=== PATIENT | male | born 1945 | race Two or more races ===

== ENCOUNTER 2016-12-05 18:12 | Inpatient (IN) | payer MEDICARE, MEDICAID ==
[~2016-12-05] VITALS: Ht 167.6 cm; Wt 99.8 kg
[2016-12-05 18:45] VITALS: BP 133/76
[2016-12-05] MEDS ORDERED: PredniSONE 20mg tab ORAL ONE (18:45)
[2016-12-05] MEDS ORDERED: Ipratropium 0.02% Inh Soln 2.5ml UD HHN ONE (18:45)
[2016-12-05 18:52] LABS: BASOPHILS % (AUTO) 1.7 % (0.0-2.0); EOSINOPHILS % (AUTO) 4.4 % (0.0-3.0); LYMPHOCYTES % (AUTO) 24.8 % (20.0-45.0); MEAN CORPUSCULAR HEMOGLOBIN 25.4 PG (27.0-31.0); MEAN CORPUSCULAR HGB CONC 30.7 G/DL (32.0-36.0); MEAN CORPUSCULAR VOLUME 83 FL (80-99); MEAN PLATELET VOLUME 8.6 FL (6.5-10.1); NEUTROPHILS % (AUTO) 60.1 % (45.0-75.0); PLATELET COUNT 195 K/UL (150-450); RED BLOOD COUNT 4.76 M/UL (4.70-6.10); RED CELL DISTRIBUTION WIDTH 14.4 % (11.6-14.8); WHITE BLOOD COUNT 7.3 K/UL (4.8-10.8)
[2016-12-05] MEDS: Albuterol ud Inhalation HHN SCH ×2 (18:52→19:01)
[2016-12-05 18:54] LABS: ALANINE AMINOTRANSFERASE 12 U/L (3-41); ALBUMIN/GLOBULIN RATIO 1.5 (1.0-2.7); ANION GAP 17 (5-15); ASPARTATE AMINO TRANSFERASE 14 U/L (5-40); CALCIUM 9.2 mg/dL (8.6-10.2); CARBON DIOXIDE 24 mEQ/L (20-30); CHLORIDE 99 mEQ/L (98-107); CREATININE 0.9 mg/dL (0.7-1.2); HEMOLYSIS 13; POTASSIUM 3.7 mEQ/L (3.4-4.9); SODIUM 140 mEQ/L (135-145); TOTAL PROTEIN 6.8 g/dL (6.6-8.7); TROPONIN I < 0.30 ng/mL (<=0.30)
[2016-12-05 18:59] LABS: PROTHROMBIN TIME 10.4 SEC (9.30-11.50)
[2016-12-05] MEDS ORDERED: ALBUTEROL2.5 MG/3 M INH (19:31)
[2016-12-05] MEDS ORDERED: SINGULAIR10 MG ORAL (19:41)
[2016-12-05] MEDS ORDERED: ALLOPURINOL100 M1 ORAL (19:41)
[2016-12-05] MEDS ORDERED: ASPIRIN81 MG ORAL (19:41)
[2016-12-05] MEDS ORDERED: ISOSORBIDE DINIT5 M2 PO (19:41)
[2016-12-05] MEDS ORDERED: TAMSULOSIN HCL0.4 MG ORAL (19:41)
[2016-12-05] MEDS ORDERED: PREVACID15 M2 ORAL (19:41)
[2016-12-05] MEDS ORDERED: CLARITIN10 M2 ORAL (19:41)
[2016-12-05] MEDS ORDERED: VITAMIN B-12100 MCG ORAL (19:41)
[2016-12-05] MEDS ORDERED: PLAVIX75 MG ORAL (19:41)
[2016-12-05] MEDS ORDERED: ADVAIR 250-501 EACH INH (19:41)
--- NOTE | 2016-12-05 20:26 | Emergency Room Report ---
History of Present Illness General Chief Complaint: Chest Pain Source: Patient, EMS Present Illness HPI This patient was brought in by EMS. The patient states that he developed some low-grade chest pain around 5 PM today. States that he also felt short of breath at that time. He states that he walked about a block to the [place] and developed worsening chest pain and shortness of breath. EMS was called and in route to [facility] he was given 3 nitroglycerin and an aspirin. He states he had significant improvement in his symptoms. He admits that he does have asthma. He denies recent illness. He states that his chest pain is almost gone at this time. He denies fever or chills. Denies nausea or vomiting. He denies abdominal pain. He has no other complaints. Allergies: Uncoded Allergies: RED MEAT (Allergy, Unknown, 12/05/16) Patient History Past Medical History: see triage record, HTN, CAD, asthma, GERD, CVA/TIA Social History: Denies: alcohol use, drug use, smoking Reviewed Nursing Documentation: PMH: Agreed, PSxH: Agreed Nursing Documentation-PMH Hx Cardiac Problems: Yes - STENT (2012) Hx Hypertension: Yes Hx Asthma: Yes Hx Cerebrovascular Accident: Yes - TIA Review of Systems All Other Systems: negative except mentioned in HPI Physical Exam Vital Signs Date Time Temp Pulse Resp B/P Pulse Ox O2 Delivery O2 Flow Rate FiO2 12/05/16 18:07 98.2 81 18 144/91 97 Room Air 12/05/16 18:45 2.0 12/05/16 18:45 21 Sp02 EP Interpretation: reviewed, normal General Appearance: no apparent distress, alert, GCS 15, non-toxic Head: normocephalic, atraumatic Eyes: bilateral eye PERRL, bilateral eye normal inspection ENT: hearing grossly normal, normal pharynx, no angioedema, normal voice Neck: full range of motion, supple/symm/no masses Respiratory: chest non-tender, lungs clear, no respiratory distress, no retraction, no accessory muscle use, speaking full sentences Cardiovascular #1: regular rate, rhythm, no edema Gastrointestinal: normal bowel sounds, non tender, soft, non-distended, no guarding, no rebound Rectal: deferred Musculoskeletal: back normal, gait/station normal, normal range of motion, non- tender Neurologic: alert, oriented x3, responsive, motor strength/tone normal, sensory intact, speech normal Psychiatric: judgement/insight normal, memory normal, mood/affect normal, no suicidal/homicidal ideation Skin: normal color, no rash, warm/dry, well hydrated Medical Decision Making Diagnostic Impression: Primary Impression: Asthma exacerbation Additional Impression: Chest pain ER Course This patient presented with chest pain that improved significantly with nitroglycerin prior to arrival. However, he did develop chest pain again was also wheezing on exam. I treated the patient with albuterol and prednisone he had significant improvement in his symptoms. Likely, this patient is having an asthma exacerbation. However, given the patient's age and history of coronary artery disease, I am concerned about acute coronary syndrome. Initial workup to include EKG and troponin were unremarkable. However, the patient did present early on after symptom onset. This patient will be admitted to telemetry for further evaluation and further treatment of his asthma and further evaluation by cardiology. Labs Test 12/05/16 18:20 White Blood Count 7.3 K/UL (4.8-10.8) Red Blood Count 4.76 M/UL (4.70-6.10) Hemoglobin 12.1 G/DL (14.2-18.0) Hematocrit 39.3 % (42.0-52.0) Mean Corpuscular Volume 83 FL (80-99) Mean Corpuscular Hemoglobin 25.4 PG (27.0-31.0) Mean Corpuscular Hemoglobin Concent 30.7 G/DL (32.0-36.0) Red Cell Distribution Width 14.4 % (11.6-14.8) Platelet Count 195 K/UL (150-450) Mean Platelet Volume 8.6 FL (6.5-10.1) Neutrophils (%) (Auto) 60.1 % (45.0-75.0) Lymphocytes (%) (Auto) 24.8 % (20.0-45.0) Monocytes (%) (Auto) 9.0 % (1.0-10.0) Eosinophils (%) (Auto) 4.4 % (0.0-3.0) Basophils (%) (Auto) 1.7 % (0.0-2.0) Prothrombin Time 10.4 SEC (9.30-11.50) Prothromb Time International Ratio 1.0 (0.9-1.1) Activated Partial Thromboplast Time 27 SEC (23-33) Sodium Level 140 mEQ/L (135-145) Potassium Level 3.7 mEQ/L (3.4-4.9) Chloride Level 99 mEQ/L (98-107) Carbon Dioxide Level 24 mEQ/L (20-30) Anion Gap 17 (5-15) Blood Urea Nitrogen 14 mg/dL (7-23) Creatinine 0.9 mg/dL (0.7-1.2) Estimat Glomerular Filtration Rate mL/min (>60) Glucose Level 131 mg/dL (74-106) Calcium Level 9.2 mg/dL (8.6-10.2) Total Bilirubin < 0.2 mg/dL (0.0-1.2) Aspartate Amino Transf (AST/SGOT) 14 U/L (5-40) Alanine Aminotransferase (ALT/SGPT) 12 U/L (3-41) Alkaline Phosphatase 82 U/L (40-129) Total Creatine Kinase 90 U/L (38-174) Creatine Kinase MB 2.0 ng/mL (< 6.7) Creatine Kinase MB Relative Index 2.2 Troponin I < 0.30 ng/mL (<=0.30) Pro-B-Type Natriuretic Peptide 26 pg/mL (0-125) Total Protein 6.8 g/dL (6.6-8.7) Albumin 4.1 g/dL (3.5-5.2) Globulin 2.7 g/dL Albumin/Globulin Ratio 1.5 (1.0-2.7) EKG Diagnostic Results Rate: normal Rhythm: NSR ST Segments: other Other Impression LAD, IRBBB, NSST Rhythm Strip Diag. Results EP Interpretation: yes Rate: 80's Rhythm: NSR, no PVC's, no ectopy Chest X-Ray Diagnostic Results Chest X-Ray Ordered: Yes # of Views/Limited/Complete: 1 View Interpretation: no consolidation, no effusion, no pneumothorax, no acute cardiopulmonary disease Indication: Chest Pain Impression: No acute disease Date Electronically Signed: Dec 05, 2016 Time Electronically Signed: 20:26 Last Vital Signs Date Time Temp Pulse Resp B/P Pulse Ox O2 Delivery O2 Flow Rate FiO2 12/05/16 19:16 72 20 99 Room Air 21 12/05/16 18:45 133/76 2.0 12/05/16 18:07 98.2 Status: improved Disposition: ADMITTED INPATIENT Condition: Serious Referrals: NON PHYSICIAN (PCP) NGA ESCOBAR D.O. Dec 05, 2016 20:26
[2016-12-05 20:45] VITALS: BP 131/79
[2016-12-05] MEDS ORDERED: Nitroglycerin Subl 0.4mg tab (Bottle Of 25) SL PRN (21:00)
[2016-12-05] MEDS ORDERED: Diltiazem 25mg/5ml IV PRN (21:00)
[2016-12-05] MEDS ORDERED: Miralax 17gm pkt ORAL PRN (21:00)
[2016-12-05] MEDS ORDERED: DuoNeb 0.5-3(2.5)mg/3ml neb HHN PRN (21:00)
[2016-12-05] MEDS ORDERED: Enalaprilat 2.5mg/2ml Inj IV PRN (21:00)
[2016-12-05] MEDS ORDERED: Morphine Sulfate 2mg/ml Inj IVP PRN (21:00)
[2016-12-05 21:30] VITALS: BP 120/68
[2016-12-05] MEDS: Solu-MEDROL 125mg Inj IVP SCH (23:02)
[2016-12-05] MEDS: Tamsulosin 0.4mg cap ORAL SCH (23:02)
[2016-12-05] MEDS: Heparin 5000 units/ml inj SUBQ SCH (23:04)
[2016-12-06 00:01] VITALS: BP 123/74
[2016-12-06 04:02] VITALS: BP 154/82
[2016-12-06] MEDS: Solu-MEDROL 125mg Inj IVP SCH ×4 (06:10→23:37)
[2016-12-06 07:30] LABS: MEAN CORPUSCULAR HEMOGLOBIN 25.4 PG (27.0-31.0); MEAN CORPUSCULAR HGB CONC 31.5 G/DL (32.0-36.0); MEAN CORPUSCULAR VOLUME 81 FL (80-99); MEAN PLATELET VOLUME 8.7 FL (6.5-10.1); PLATELET COUNT 199 K/UL (150-450); RED BLOOD COUNT 4.76 M/UL (4.70-6.10); RED CELL DISTRIBUTION WIDTH 14.4 % (11.6-14.8); WHITE BLOOD COUNT 4.2 K/UL (4.8-10.8)
[2016-12-06 07:43] LABS: CHOLESTEROL 174 mg/dL (< 200); CHOLESTEROL/HDL RATIO 3.7 (3.3-4.4); CRP QUANT < 0.3 mg/dL (< 0.5); HEMOLYSIS 0; LDL CHOLESTEROL (CALC.) 109 mg/dL (60-99)
[2016-12-06 07:50] LABS: PROTHROMBIN TIME 10.9 SEC (9.30-11.50)
[2016-12-06 07:54] VITALS: BP 131/78
[2016-12-06 08:00] LABS: THYROID STIMULATING HORMONE 0.583 uIU/mL (0.300-4.500)
[2016-12-06 08:05] LABS: TROPONIN I < 0.30 ng/mL (<=0.30)
[2016-12-06] MEDS: Heparin 5000 units/ml inj SUBQ SCH ×2 (08:45→20:20)
[2016-12-06 08:54] LABS: BAND NEUTROPHILS % (MANUAL) 0 % (0-8); BASOPHILS % (MANUAL) 0 % (0-2); EOSINOPHILS % (MANUAL) 0 % (0-3); LYMPHOCYTES % (MANUAL) 11 % (20-45); NEUTROPHILS % (MANUAL) 87 % (45-75); PLATELET ESTIMATE ADEQUATE; PLATELET MORPHOLOGY NORMAL; TOTAL CELLS COUNTED 100
[2016-12-06] MEDS ORDERED: Aspirin Baby 81mg ORAL SCH (09:00)
[2016-12-06] MEDS ORDERED: Allopurinol 100mg Tab ORAL SCH (09:00)
[2016-12-06 11:51] VITALS: BP 152/89
--- NOTE | 2016-12-06 12:07 | History and Physical ---
History of Present Illness General Date patient seen: Dec 06, 2016 Reason for Hospitalization: Chest Pain Present Illness HPI 71 year old male with hx of asthma, DM, HTN brought in by EMS with CC of some low-grade chest pain around 5 PM today. He also felt short of breath at that time. He states that he walked about a block to the [place] and developed worsening chest pain and shortness of breath. EMS was called and in route to [facility] he was given 3 nitroglycerin and an aspirin. He states he had significant improvement in his symptoms. He is admitted to [facility] for acute exacerbation of her underlying asthma. Allergies: Uncoded Allergies: RED MEAT (Allergy, Unknown, 12/05/16) Medication History Scheduled Allopurinol* (Allopurinol*), Unknown Dose ORAL DAILY, (Reported) Aspirin* (Aspirin*), 81 MG ORAL DAILY, (Reported) Clopidogrel Bisulfate* (Plavix*), 75 MG ORAL DAILY, (Reported) Cyanocobalamin (Vitamin B-12), Unknown Dose ORAL DAILY, (Reported) Fluticasone/Salmeterol (Advair 250-50 Diskus), 1 PUFF INH EVERY 12 HOURS, ( Reported) Isosorbide Dinitrate (Isosorbide Dinitrate), 5 MG PO DAILY, (Reported) Lansoprazole* (Prevacid*), Unknown Dose ORAL DAILY, (Reported) Loratadine (Claritin), Unknown Dose ORAL DAILY, (Reported) Montelukast Sodium* (Singulair*), 10 MG ORAL DAILY, (Reported) Tamsulosin Hcl (Tamsulosin Hcl*), 0.4 MG ORAL BEDTIME, (Reported) Scheduled PRN Albuterol Sulfate* (Albuterol Sulfate Hhn*), 3 ML INH Q4H PRN for Shortness of Breath, (Reported) Patient History Healthcare decision maker Resuscitation status Full Code Advanced Directive on File No Past Medical/Surgical History Past Medical/Surgical History: (1) History of asthma (2) HTN (hypertension) (3) Diabetes mellitus (4) Morbid obesity Review of Systems All Other Systems: negative except mentioned in HPI Physical Exam General Appearance: obese Lines, tubes and drains: peripheral HEENT: normocephalic, atraumatic Neck: non-tender, normal alignment Respiratory/Chest: chest wall non-tender, lungs clear Cardiovascular/Chest: normal peripheral pulses Abdomen: normal bowel sounds, non tender Genitourinary/Rectal: normal genital exam Extremities: normal range of motion Skin Exam: normal pigmentation 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 Last 24 Hour Vital Signs Date Time Temp Pulse Resp B/P Pulse Ox O2 Delivery O2 Flow Rate FiO2 12/06/16 11:51 97.9 95 18 152/89 95 Nasal Cannula 12/06/16 11:15 138/89 12/06/16 08:42 97 12/06/16 07:54 97.5 97 18 131/78 96 Nasal Cannula 2.0 12/06/16 07:45 96 16 Room Air 21 12/06/16 04:56 88 18 97 Room Air 21 12/06/16 04:47 90 20 95 Room Air 21 12/06/16 04:02 97.7 96 19 154/82 96 Room Air 12/06/16 04:00 89 12/06/16 00:01 97.3 67 17 123/74 95 Room Air 12/06/16 00:00 72 12/05/16 21:30 97.2 75 19 120/68 97 Nasal Cannula 2.0 12/05/16 20:45 76 13 131/79 97 Nasal Cannula 2.0 12/05/16 20:45 98.2 76 13 131/79 97 Room Air 2.0 21 12/05/16 19:16 72 20 99 Room Air 21 12/05/16 18:52 86 16 Room Air 21 12/05/16 18:45 86 16 96 Room Air 21 12/05/16 18:45 80 20 133/76 96 Nasal Cannula 2.0 12/05/16 18:12 81 18 Room Air 12/05/16 18:07 98.2 81 18 144/91 97 Room Air Intake and Output 12/05/16 12/06/16 19:00 07:00 Intake Total 0 ml 240 ml Balance 0 ml 240 ml Intake Oral 0 ml 240 ml # Voids 4 Laboratory Tests Test 12/05/16 18:20 12/06/16 06:55 White Blood Count 7.3 K/UL (4.8-10.8) 4.2 K/UL (4.8-10.8) L Red Blood Count 4.76 M/UL (4.70-6.10) 4.76 M/UL (4.70-6.10) Hemoglobin 12.1 G/DL (14.2-18.0) L 12.1 G/DL (14.2-18.0) L Hematocrit 39.3 % (42.0-52.0) L 38.4 % (42.0-52.0) L Mean Corpuscular Volume 83 FL (80-99) 81 FL (80-99) Mean Corpuscular Hemoglobin 25.4 PG (27.0-31.0) L 25.4 PG (27.0-31.0) L Mean Corpuscular Hemoglobin Concent 30.7 G/DL (32.0-36.0) L 31.5 G/DL (32.0-36.0) L Red Cell Distribution Width 14.4 % (11.6-14.8) 14.4 % (11.6-14.8) Platelet Count 195 K/UL (150-450) 199 K/UL (150-450) Mean Platelet Volume 8.6 FL (6.5-10.1) 8.7 FL (6.5-10.1) Neutrophils (%) (Auto) 60.1 % (45.0-75.0) % (45.0-75.0) Lymphocytes (%) (Auto) 24.8 % (20.0-45.0) % (20.0-45.0) Monocytes (%) (Auto) 9.0 % (1.0-10.0) % (1.0-10.0) Eosinophils (%) (Auto) 4.4 % (0.0-3.0) H % (0.0-3.0) Basophils (%) (Auto) 1.7 % (0.0-2.0) % (0.0-2.0) Prothrombin Time 10.4 SEC (9.30-11.50) 10.9 SEC (9.30-11.50) Prothromb Time International Ratio 1.0 (0.9-1.1) 1.0 (0.9-1.1) Activated Partial Thromboplast Time 27 SEC (23-33) 28 SEC (23-33) Sodium Level 140 mEQ/L (135-145) Potassium Level 3.7 mEQ/L (3.4-4.9) Chloride Level 99 mEQ/L (98-107) Carbon Dioxide Level 24 mEQ/L (20-30) Anion Gap 17 (5-15) H Blood Urea Nitrogen 14 mg/dL (7-23) Creatinine 0.9 mg/dL (0.7-1.2) Estimat Glomerular Filtration Rate mL/min (>60) Glucose Level 131 mg/dL (74-106) H Calcium Level 9.2 mg/dL (8.6-10.2) Total Bilirubin < 0.2 mg/dL (0.0-1.2) Aspartate Amino Transf (AST/SGOT) 14 U/L (5-40) Alanine Aminotransferase (ALT/SGPT) 12 U/L (3-41) Alkaline Phosphatase 82 U/L (40-129) Total Creatine Kinase 90 U/L (38-174) Creatine Kinase MB 2.0 ng/mL (< 6.7) Creatine Kinase MB Relative Index 2.2 Troponin I < 0.30 ng/mL (<=0.30) < 0.30 ng/mL (<=0.30) Pro-B-Type Natriuretic Peptide 26 pg/mL (0-125) Total Protein 6.8 g/dL (6.6-8.7) Albumin 4.1 g/dL (3.5-5.2) Globulin 2.7 g/dL Albumin/Globulin Ratio 1.5 (1.0-2.7) Differential Total Cells Counted 100 Neutrophils % (Manual) 87 % (45-75) H Lymphocytes % (Manual) 11 % (20-45) L Monocytes % (Manual) 2 % (1-10) Eosinophils % (Manual) 0 % (0-3) Basophils % (Manual) 0 % (0-2) Band Neutrophils 0 % (0-8) Platelet Estimate Adequate Platelet Morphology Normal Red Blood Cell Morphology Normal C-Reactive Protein, Quantitative < 0.3 mg/dL (< 0.5) Triglycerides Level 90 mg/dL (< 150) Cholesterol Level 174 mg/dL (< 200) LDL Cholesterol 109 mg/dL (60-99) H HDL Cholesterol 47 mg/dL (> 60) Cholesterol/HDL Ratio 3.7 (3.3-4.4) Thyroid Stimulating Hormone (TSH) 0.583 uIU/mL (0.300-4.500) Height (Feet): 5 Height (Inches): 6.00 Weight (Pounds): 220 Medications Current Medications Medications (Trade) Dose Ordered Sig/Garrett Route PRN Reason Start Time Stop Time Status Last Admin Dose Admin Acetaminophen (Tylenol) 650 mg Q4H PRN ORAL FEVER 12/05/16 21:00 01/04/17 20:59 Albuterol/ Ipratropium (DuoNeb 0.5-3(2.5)mg/3ml) 3 ml EVERY 4 HOURS PRN HHN Shortness of Breath 12/05/16 21:00 12/10/16 20:59 12/06/16 04:48 Allopurinol (Zyloprim) 100 mg DAILY ORAL 12/06/16 09:00 01/05/17 08:59 12/06/16 08:44 Aspirin (ASA) 162 mg DAILY ORAL 12/06/16 09:00 01/05/17 08:59 12/06/16 08:44 Clopidogrel Bisulfate (Plavix) 75 mg DAILY ORAL 12/06/16 09:00 01/05/17 08:59 12/06/16 08:43 Dextrose (Dextrose 50%) STAT PRN IV Hypoglycemia 12/06/16 12:00 01/05/17 11:59 UNV Diltiazem HCl (Cardizem) 10 mg EVERY HOUR PRN IV heart rate more than 120, 12/05/16 21:00 01/04/17 20:59 Enalaprilat (Vasotec) 2.5 mg EVERY 6 HOURS PRN IV sbp more than 160 12/05/16 21:00 01/04/17 20:59 Heparin Sodium (Porcine) (Heparin 5000 units/ml) 5,000 units EVERY 12 HOURS SUBQ 12/05/16 22:00 01/04/17 21:59 12/06/16 08:45 Insulin Aspart (NovoLOG) BEFORE MEALS AND HS SUBQ 12/06/16 16:30 01/05/17 16:29 UNV Levofloxacin (Levaquin) 100 ml @ 100 mls/hr Q24H IVPB 12/05/16 22:00 12/12/16 21:59 12/05/16 23:02 Methylprednisolone Sodium Succinate 60 mg 60 mg EVERY 6 HOURS IVP 12/06/16 00:00 01/05/17 00:00 12/06/16 11:45 Morphine Sulfate (Morphine Sulfate) 2 mg EVERY 4 HOURS PRN IVP severe Pain (Pain Scale 7-10) 12/05/16 21:00 12/12/16 20:59 Nitroglycerin (Ntg) 0.4 mg Q5M PRN SL Prn Chest Pain 12/05/16 21:00 01/04/17 20:59 12/06/16 11:15 Ondansetron HCl (Zofran) 4 mg Q6H PRN IVP Nausea & Vomiting 12/05/16 21:00 01/04/17 20:59 Pantoprazole (Protonix) 40 mg DAILY ORAL 12/06/16 09:00 01/05/17 08:59 12/06/16 08:44 Polyethylene Glycol (Miralax) 17 gm DAILYPRN PRN ORAL Constipation 12/05/16 21:00 01/04/17 20:59 Tamsulosin HCl (Flomax) 0.4 mg BEDTIME ORAL 12/05/16 22:00 01/04/17 21:59 12/05/16 23:02 Temazepam (Restoril) 15 mg HSPRN PRN ORAL Insomnia 12/05/16 21:00 12/12/16 20:59 Assessment/Plan Problem List: (1) Acute respiratory failure ICD Codes: J96.00 - Acute respiratory failure, unspecified whether with hypoxia or hypercapnia SNOMED: 10705529 (2) Asthma exacerbation ICD Codes: J45.901 - Unspecified asthma with (acute) exacerbation SNOMED: 774533852 (3) Chest pain ICD Codes: R07.9 - Chest pain, unspecified SNOMED: 59357239 (4) Diabetes mellitus ICD Codes: E11.9 - Type 2 diabetes mellitus without complications SNOMED: 87015539 (5) Morbid obesity ICD Codes: E66.01 - Morbid (severe) obesity due to excess calories SNOMED: 996803296, 35057456348525 (6) HTN (hypertension) ICD Codes: I10 - Essential (primary) hypertension SNOMED: 56035236 Assessment/Plan respiratory treatment antitussives antibiotics steroids cardiac evaluation sliding scale, diabetic diet. [place] YEAGER Dec 06, 2016 12:07
--- NOTE | 2016-12-06 12:08 | Diagnostic Imaging Report ---
Indication: Chest pain Technique: Single portable AP view of the chest. Findings: Comparison: None. Body habitus limits evaluation, particularly of the lung bases. The bones and extra pulmonary soft tissues, cardiomediastinal silhouette, pulmonary vasculature and parenchyma, and pleural surfaces demonstrate no obvious abnormality. IMPRESSION: Negative portable AP chestwith limitation as described. Basal abnormalities may be missed. Upright PA and lateral chest radiographs with better inspiratory effort and optimal technique recommended for more complete evaluation...
[2016-12-06] MEDS: NovoLOG Insulin Flexpen SUBQ SCH ×3 (12:46→20:21)
[2016-12-06 15:44] VITALS: BP 115/60
--- NOTE | 2016-12-06 16:48 | Cardiology Progress Note ---
Assessment/Plan Assessment/Plan chest pain hs opf same with ne perfusion imagign 10/2016 [facility] cad stent in lad dm htn obesity asthma leonila all torp neg ekg neg chanda neg dc tlee treat asthma home soon [id number] Objective Last 24 Hour Vital Signs Date Time Temp Pulse Resp B/P Pulse Ox O2 Delivery O2 Flow Rate FiO2 12/06/16 16:35 82 12/06/16 15:44 97.9 85 18 115/60 96 Nasal Cannula 2.0 12/06/16 12:49 112 12/06/16 11:51 97.9 95 18 152/89 95 Nasal Cannula 12/06/16 11:15 138/89 12/06/16 08:42 97 12/06/16 07:54 97.5 97 18 131/78 96 Nasal Cannula 2.0 12/06/16 07:45 96 16 Room Air 21 12/06/16 04:56 88 18 97 Room Air 21 12/06/16 04:47 90 20 95 Room Air 21 12/06/16 04:02 97.7 96 19 154/82 96 Room Air 12/06/16 04:00 89 12/06/16 00:01 97.3 67 17 123/74 95 Room Air 12/06/16 00:00 72 12/05/16 21:30 97.2 75 19 120/68 97 Nasal Cannula 2.0 12/05/16 20:45 76 13 131/79 97 Nasal Cannula 2.0 12/05/16 20:45 98.2 76 13 131/79 97 Room Air 2.0 21 12/05/16 19:16 72 20 99 Room Air 21 12/05/16 18:52 86 16 Room Air 21 12/05/16 18:45 86 16 96 Room Air 21 12/05/16 18:45 80 20 133/76 96 Nasal Cannula 2.0 12/05/16 18:12 81 18 Room Air 12/05/16 18:07 98.2 81 18 144/91 97 Room Air Intake and Output 12/05/16 12/06/16 19:00 07:00 Intake Total 0 ml 240 ml Balance 0 ml 240 ml Intake Oral 0 ml 240 ml # Voids 4 Laboratory Tests Test 12/05/16 18:20 12/06/16 06:55 White Blood Count 7.3 K/UL (4.8-10.8) 4.2 K/UL (4.8-10.8) L Red Blood Count 4.76 M/UL (4.70-6.10) 4.76 M/UL (4.70-6.10) Hemoglobin 12.1 G/DL (14.2-18.0) L 12.1 G/DL (14.2-18.0) L Hematocrit 39.3 % (42.0-52.0) L 38.4 % (42.0-52.0) L Mean Corpuscular Volume 83 FL (80-99) 81 FL (80-99) Mean Corpuscular Hemoglobin 25.4 PG (27.0-31.0) L 25.4 PG (27.0-31.0) L Mean Corpuscular Hemoglobin Concent 30.7 G/DL (32.0-36.0) L 31.5 G/DL (32.0-36.0) L Red Cell Distribution Width 14.4 % (11.6-14.8) 14.4 % (11.6-14.8) Platelet Count 195 K/UL (150-450) 199 K/UL (150-450) Mean Platelet Volume 8.6 FL (6.5-10.1) 8.7 FL (6.5-10.1) Neutrophils (%) (Auto) 60.1 % (45.0-75.0) % (45.0-75.0) Lymphocytes (%) (Auto) 24.8 % (20.0-45.0) % (20.0-45.0) Monocytes (%) (Auto) 9.0 % (1.0-10.0) % (1.0-10.0) Eosinophils (%) (Auto) 4.4 % (0.0-3.0) H % (0.0-3.0) Basophils (%) (Auto) 1.7 % (0.0-2.0) % (0.0-2.0) Prothrombin Time 10.4 SEC (9.30-11.50) 10.9 SEC (9.30-11.50) Prothromb Time International Ratio 1.0 (0.9-1.1) 1.0 (0.9-1.1) Activated Partial Thromboplast Time 27 SEC (23-33) 28 SEC (23-33) Sodium Level 140 mEQ/L (135-145) Potassium Level 3.7 mEQ/L (3.4-4.9) Chloride Level 99 mEQ/L (98-107) Carbon Dioxide Level 24 mEQ/L (20-30) Anion Gap 17 (5-15) H Blood Urea Nitrogen 14 mg/dL (7-23) Creatinine 0.9 mg/dL (0.7-1.2) Estimat Glomerular Filtration Rate mL/min (>60) Glucose Level 131 mg/dL (74-106) H Calcium Level 9.2 mg/dL (8.6-10.2) Total Bilirubin < 0.2 mg/dL (0.0-1.2) Aspartate Amino Transf (AST/SGOT) 14 U/L (5-40) Alanine Aminotransferase (ALT/SGPT) 12 U/L (3-41) Alkaline Phosphatase 82 U/L (40-129) Total Creatine Kinase 90 U/L (38-174) Creatine Kinase MB 2.0 ng/mL (< 6.7) Creatine Kinase MB Relative Index 2.2 Troponin I < 0.30 ng/mL (<=0.30) < 0.30 ng/mL (<=0.30) Pro-B-Type Natriuretic Peptide 26 pg/mL (0-125) Total Protein 6.8 g/dL (6.6-8.7) Albumin 4.1 g/dL (3.5-5.2) Globulin 2.7 g/dL Albumin/Globulin Ratio 1.5 (1.0-2.7) Differential Total Cells Counted 100 Neutrophils % (Manual) 87 % (45-75) H Lymphocytes % (Manual) 11 % (20-45) L Monocytes % (Manual) 2 % (1-10) Eosinophils % (Manual) 0 % (0-3) Basophils % (Manual) 0 % (0-2) Band Neutrophils 0 % (0-8) Platelet Estimate Adequate Platelet Morphology Normal Red Blood Cell Morphology Normal C-Reactive Protein, Quantitative < 0.3 mg/dL (< 0.5) Triglycerides Level 90 mg/dL (< 150) Cholesterol Level 174 mg/dL (< 200) LDL Cholesterol 109 mg/dL (60-99) H HDL Cholesterol 47 mg/dL (> 60) Cholesterol/HDL Ratio 3.7 (3.3-4.4) Thyroid Stimulating Hormone (TSH) 0.583 uIU/mL (0.300-4.500) SANTOS DELEON Dec 06, 2016 16:48
--- NOTE | 2016-12-06 17:34 | Cardiology Report ---
APPROVED REPORT EXAM: Two-dimensional and M-mode echocardiogram with Doppler and color Doppler. INDICATION Left Ventricular Function M-Mode DIMENSIONS IVSd1.0 (0.7-1.1cm)Left Atrium (MM)3.5 (1.6-4.0cm) LVDd5.7 (3.5-5.6cm)Aortic Root2.9 (2.0-3.7cm) PWd0.7 (0.7-1.1cm)Aortic Cusp Exc.1.8 (1.5-2.0cm) LVDs2.7 (2.5-4.0cm) PWs1.7 cm Technically difficult study due to poor acoustic windows. Study quality precludes accurate assessment of regional wall motion. Normal left ventricular chamber size, systolic function and wall motion. Left ventricular ejection fraction estimated to be 60 %. No evidence of ventricular hypertrophy. Anterior Echo-free space, may be due to pericardial fat or effusion. All other cardiac chamber sizes are within normal limits. Mild focal aortic valve sclerosis with adequate cusp excursion. Mildly thickened mitral valve leaflets with normal excursion. Mild mitral annulus and aortic root calcification. Normal pulmonic valve structure. Normal tricuspid valve structure. IVC is normal in size with physiologic collapse. A color flow and spectral Doppler study was performed and revealed: No aortic regurgitation. Trace mitral regurgitation. Mitral diastolic velocities suggest reduced left ventricular relaxation (Grade I). Trace tricuspid regurgitation. Tricuspid systolic velocities suggests peak right ventricular systolic pressure of 11 mmHg. Trace pulmonic regurgitation present.
--- NOTE | 2016-12-06 18:11 | Cardiology Report ---
APPROVED REPORT EKG Measurement Heart [id number] Normal sinus rhythm Left axis deviation Low voltage QRS Incomplete right bundle branch block Nonspecific T wave abnormality Abnormal ECG
[2016-12-06] MEDS ORDERED: Albuterol ud Inhalation HHN ONE (19:00)
[2016-12-06 20:00] VITALS: BP 135/65
[2016-12-06] MEDS: Tamsulosin 0.4mg cap ORAL SCH (20:16)
[2016-12-06] MEDS ORDERED: Nitroglycerin Subl 0.4mg tab (Bottle Of 25) SL PRN (22:15)
[2016-12-06] MEDS ORDERED: Diltiazem 25mg/5ml IV PRN (23:00)
--- NOTE | 2016-12-06 23:00 | Consultation ---
DATE OF CONSULTATION: 12/06/2016 CARDIOLOGY CONSULTATION CONSULTING PHYSICIAN: Moshe Thompson M.D. REFERRING PHYSICIAN: Ina Schaefer M.D. REASON FOR REFERRAL: Chest pain. HISTORY OF PRESENT ILLNESS: The patient is a 71-year-old gentleman with history of multiple medical problems who was admitted to the hospital because of a fall that he sustained and injuring his knee and had some chest pains after that became shortness of breath as well. He had a history of asthma and has occasional exacerbations of asthma and he really panicked. He apparently called the paramedics and brought him to the emergency room because of chest pain. He has had a recent hospitalization at [facility] back in October of this year for which he underwent perfusion imaging that was normal at that time. He does not have any PND or orthopnea. He does have dyspnea on exertion especially if he walks long distances and he gets occasional chest pains when he walks uphill not when he walks from [place] to [facility] back and forth . He has no palpitation. No dizziness or lightheadedness. PAST MEDICAL HISTORY: According to the [facility] records, history of recent hospitalization because of chest pain with negative ischemic evaluation and normal ventricular systolic function of 60%. He also has a possible cervical radiculitis, history of hypertension, hyperlipidemia, history of transient ischemic attack, asthma, abdominal pain, and nausea according to the [facility] records. He does have a history of coronary disease apparently with PCI that was performed some time ago, details of that is not completely clear to me and the pain he is experiencing at the present time is similar to the pain that he had at [facility] with negative ischemic evaluation subsequently. The patient does have history of diabetes mellitus, enlarged prostate, gastroesophageal reflux disease, kidney stones, pneumonia, pulmonary disease, sleep apnea, history of stroke, and transient ischemic attacks. ALLERGIES: The patient is not allergic to any medications. SOCIAL HISTORY: He does not smoke or drink alcoholic beverages. He lives at home. REVIEW OF SYSTEMS: Gastrointestinal: Positive for constipation. Genitourinary: Discomfort on urination. Pulmonary: Coughing and wheezing. Constitutional: occasional chills. Neurologic: He has numbness and tingling sensation in his fingertips which he thinks he had carpal tunnel syndrome. PHYSICAL EXAMINATION: GENERAL: Shows to be obese elderly gentleman, in no respiratory distress. VITAL SIGNS: Blood pressure has been ranging between 115/60 to 152/89 although most of blood pressure readings in 130s and 150s range. His heart rates in the 82 to 112. Temperature 97.2. Oxygen saturation 96% on two liters and 95% on room air. NECK: Supple. No jugular venous distention. He does have some expiratory more so than inspiratory wheezing on evaluation, decreased breath sounds noted bilaterally. CARDIAC: Regular rate and rhythm. No heaves, thrills, gallops, or rubs are noted ABDOMEN: Soft and obese. Positive bowel sounds. Nontender. EXTREMITIES: There is no clubbing, cyanosis, nor is there any edema. NEUROLOGIC: He is awake, alert, responsive, in no apparent respiratory distress. LABORATORY AND DIAGNOSTIC DATA: Two sets of cardiac enzymes are both are negative between last night and this morning. Sodium 140, potassium 3.7, chloride 99, bicarbonate 24, BUN 14, creatinine 0.9, and glucose of 131. His proBNP is only 26. Albumin of 4.1. INR is 1.0 and PTT 28. He did have a chest x-ray performed in the emergency room that showed basically negative and he did have an an electrocardiogram that was performed here that showed a normal sinus rhythm, low voltage QRS complexes, otherwise no significant ST or T-wave abnormalities. ASSESSMENT: 1. Chest pain. 2. History of coronary artery disease status post percutaneous coronary intervention. 3. Asthma. 4. Diabetes mellitus. 5. Gastroesophageal reflux disease. PLAN: Dr. Schaefer, this patient was seen in Cardiac consultation. The patient had ischemia evaluation recently at [facility] in October which I printed and placed in the patient's chart 11/10/2016 that was negative and unchanged since 2016. The patient reportedly had a history of stent to left anterior descending artery in 2012. In light of the lack of cardiac enzymes abnormalities and electrocardiographic changes and possibly normal wall motion on an echocardiogram that was performed today I see no reason to continue further workup of his chest pain that seems to be chronic recurrent, he should be back on his usual medications which include antiplatelet agents aspirin and Plavix. I will follow the patient along and telemetry will be discontinued. The patient can be moved to a med/surg for treatment of his underlying asthma. Moshe Thompson M.D. DR: Jose Manuel JOB#: [id number] CC:
[2016-12-07] VITALS: BP 123/69
[2016-12-07] MEDS ORDERED: Enalaprilat 2.5mg/2ml Inj IV PRN
[2016-12-07] MEDS ORDERED: Morphine Sulfate 2mg/ml Inj IVP PRN (01:00)
[2016-12-07] MEDS ORDERED: DuoNeb 0.5-3(2.5)mg/3ml neb HHN PRN (01:00)
[2016-12-07 04:00] VITALS: BP 127/68
[2016-12-07] MEDS: Solu-MEDROL 125mg Inj IVP SCH ×2 (06:10→12:07)
[2016-12-07] MEDS: NovoLOG Insulin Flexpen SUBQ SCH ×2 (06:13→12:04)
[2016-12-07 06:51] LABS: TROPONIN I < 0.30 ng/mL (<=0.30)
[2016-12-07 08:00] VITALS: BP 135/77
[2016-12-07] MEDS ORDERED: Aspirin Baby 81mg ORAL SCH (09:00)
[2016-12-07] MEDS ORDERED: Allopurinol 100mg Tab ORAL SCH (09:00)
[2016-12-07] MEDS ORDERED: Heparin 5000 units/ml inj SUBQ SCH (09:00)
[2016-12-07 12:00] VITALS: BP 129/77
--- NOTE | 2016-12-07 14:07 | Pulmonology Progress Note ---
Assessment/Plan Problems: (1) Acute respiratory failure (2) Asthma exacerbation (3) Chest pain (4) Diabetes mellitus (5) Morbid obesity (6) HTN (hypertension) Assessment/Plan improving pt wants to go home taper steroids cardio note appreciated, apparently pt had cardiac w/u recently at [facility]. Subjective ROS Limited/Unobtainable: No Interval Events: no SOB Allergies: Uncoded Allergies: RED MEAT (Allergy, Unknown, 12/05/16) Objective Last 24 Hour Vital Signs Date Time Temp Pulse Resp B/P Pulse Ox O2 Delivery O2 Flow Rate FiO2 12/07/16 12:00 97.7 78 20 129/77 93 Room Air 12/07/16 08:00 97.2 81 20 135/77 97 Room Air 12/07/16 07:58 75 20 Room Air 21 12/07/16 04:00 98.1 73 19 127/68 93 Room Air 12/07/16 00:00 97.5 71 18 123/69 92 Room Air 12/06/16 20:00 97.5 79 18 135/65 99 Room Air 12/06/16 19:30 80 20 Room Air 21 12/06/16 16:35 82 12/06/16 15:44 97.9 85 18 115/60 96 Nasal Cannula 2.0 Intake and Output 12/06/16 12/07/16 19:00 07:00 Intake Total 360 ml Balance 360 ml Intake Oral 360 ml # Voids 4 2 General Appearance: WD/WN HEENT: normocephalic, atraumatic Respiratory/Chest: chest wall non-tender, lungs clear Cardiovascular: normal peripheral pulses, regular rhythm Abdomen: normal bowel sounds, soft, non tender Skin: no rash Neurologic/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: 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 Microbiology Date/Time Source Procedure Growth Status 12/05/16 20:20 Nasal Nares MRSA Culture - Final Staphylococcus Aureus - Mrsa Complete Laboratory Tests 12/07/16 05:40: Troponin I < 0.30 Current Medications Medications (Trade) Dose Ordered Sig/Garrett Route PRN Reason Start Time Stop Time Status Last Admin Dose Admin Acetaminophen (Tylenol) 650 mg Q4H PRN ORAL FEVER 12/07/16 01:00 01/06/17 00:59 Albuterol/ Ipratropium (DuoNeb 0.5-3(2.5)mg/3ml) 3 ml Q4H PRN HHN Shortness of Breath 12/07/16 01:00 12/12/16 00:59 Allopurinol (Zyloprim) 100 mg DAILY ORAL 12/07/16 09:00 01/06/17 08:59 12/07/16 08:37 Aspirin (ASA) 162 mg DAILY ORAL 12/07/16 09:00 01/06/17 08:59 12/07/16 08:38 Clopidogrel Bisulfate (Plavix) 75 mg DAILY ORAL 12/07/16 09:00 01/06/17 08:59 12/07/16 08:39 Dextrose (Dextrose 50%) STAT PRN IV Hypoglycemia 12/07/16 12:00 01/06/17 11:59 Enalaprilat (Vasotec) 2.5 mg Q6H PRN IV sbp more than 160 12/07/16 00:00 01/06/17 00:00 Heparin Sodium (Porcine) (Heparin 5000 units/ml) 5,000 units EVERY 12 HOURS SUBQ 12/07/16 09:00 01/06/17 08:59 12/07/16 08:41 Insulin Aspart (NovoLOG) BEFORE MEALS AND HS SUBQ 12/07/16 06:30 01/06/17 06:29 12/07/16 12:04 Levofloxacin (Levaquin) 100 ml @ 100 mls/hr Q24H IVPB 12/07/16 22:00 12/14/16 21:59 Methylprednisolone Sodium Succinate (Solu-MEDROL) 60 mg EVERY 6 HOURS IVP 12/07/16 00:00 01/06/17 00:00 12/07/16 12:07 Morphine Sulfate (Morphine Sulfate) 2 mg Q4H PRN IVP severe Pain (Pain Scale 7-10) 12/07/16 01:00 12/14/16 00:59 Nitroglycerin (Ntg) 0.4 mg Q5M PRN SL Prn Chest Pain 12/06/16 22:15 01/05/17 22:14 Ondansetron HCl (Zofran) 4 mg Q6H PRN IVP Nausea & Vomiting 12/07/16 03:00 01/06/17 02:59 Pantoprazole (Protonix) 40 mg ACBREAKFAST ORAL 12/07/16 06:30 01/06/17 06:29 12/07/16 06:10 Polyethylene Glycol (Miralax) 17 gm DAILYPRN PRN ORAL Constipation 12/07/16 21:00 01/06/17 20:59 Tamsulosin HCl (Flomax) 0.4 mg BEDTIME ORAL 12/07/16 21:00 01/06/17 20:59 Temazepam (Restoril) 15 mg HSPRN PRN ORAL Insomnia 12/07/16 21:00 12/14/16 20:59 [place] Dec 07, 2016 14:07
[2016-12-07] MEDS ORDERED: LEVOFLOXACIN750 MG ORAL (14:42)
[2016-12-07] MEDS ORDERED: PREDNISONE1 MG PO (14:44)
[2016-12-07] MEDS ORDERED: PREDNISONE5 MG ORAL (14:44)
[2016-12-07] MEDS ORDERED: PREDNISONE20 MG ORAL (14:45)
[2016-12-07] MEDS ORDERED: PREDNISONE10 M2 PO (14:46)
[2016-12-07] MEDS ORDERED: Tamsulosin 0.4mg cap ORAL SCH (21:00)
[2016-12-07] MEDS ORDERED: Miralax 17gm pkt ORAL PRN (21:00)
--- NOTE | 2016-12-08 10:38 | Discharge Summary ---
Discharge Summary Hospital Course Date of Admission Dec 05, 2016 at 19:10 Date of Discharge Dec 07, 2016 at 15:22 Admitting Diagnosis CP/Asthma exacerbation HPI Emigdio Arndt is a 71 year old male who was admitted on Dec 05, 2016 at 19:10 for Chest Pain Asthma Exacerbation Hospital Course [id number] Discharge Discharge Disposition Patient was discharged to Home (01) Discharge Diagnoses: Trinity Marcano NP Dec 08, 2016 10:38
--- NOTE | 2016-12-08 22:45 | Discharge Summary 2 SIG ---
DATE OF ADMISSION: 12/05/2016 DATE OF DISCHARGE: 12/07/2016 CONSULTANTS: Moshe Thompson M.D. BRIEF HOSPITAL COURSE: The patient is a 71-year-old male with history of asthma, diabetes, and hypertension, was brought in by EMS complaining of low-grade chest pain and shortness of breath. The patient walked a block and developed worsening chest pain and shortness of breath. EMS was called and the patient was transported to [facility]. He was given nitroglycerin and aspirin prior to arrival at ED. On evaluation at ED, EKG showed normal sinus rhythm with right bundle-branch block, nonspecific ST to T-wave changes. Chest x-ray showed no consolidation, effusion or pneumothorax. No acute cardiopulmonary disease. Initial troponin was negative. Due to the patient's risk factors, she was admitted to telemetry for further cardiac monitoring. The patient underwent cardiac evaluation with Dr. Thompson. He had a recent negative ischemic evaluation done in October at [facility] and had a history of stent placement to left anterior descending artery in 2012. An echocardiogram was done and showed ejection fraction of 60%. There was no cardiac enzyme abnormalities nor electrocardiographic changes seen. He was resumed on his usual medications, Plavix and aspirin. He was initially given steroids and respiratory treatment and was started on Levaquin. Symptoms improved and the patient was discharged home to follow up with home care liaison as outpatient and to continue medications. FINAL DIAGNOSES: 1. Acute asthma exacerbation. 2. Diabetes mellitus. 3. Morbid obesity. 4. Coronary artery disease. 5. Gastroesophageal reflux disease. 6. Hypertension. Ina Schaefer M.D. I have been assigned to dictate discharge summary on this account and I was not involved in the patient's management. Trinity Marcano N.P. DR: KG JOB#: [id number] CC: EDIE
== END 2016-12-07 15:22 | disposition home or self-care (01) | DRG 202 ==
LOC: ENRESERVDT → ENRESERVTM → EDBD 18:12 → EMR 19:06 → EDBD 19:10 → 2E 19:10 → EDBEDREQ 19:49 → 4E 12-06 21:23
DX: J45.901 Unspecified asthma with (acute) exacerbation (principal); J96.00 Acute respiratory failure, unspecified whether with hypoxia or hypercapnia; E11.9 Type 2 diabetes mellitus without complications; E66.01 Morbid (severe) obesity due to excess calories; Z68.35 Body mass index [BMI] 35.0-35.9, adult; I10 Essential (primary) hypertension; R07.9 Chest pain, unspecified; I25.10 Atherosclerotic heart disease of native coronary artery without angina pectoris; K21.9 Gastro-esophageal reflux disease without esophagitis; Z95.5 Presence of coronary angioplasty implant and graft; G47.30 Sleep apnea, unspecified; Z86.73 Personal history of transient ischemic attack (TIA), and cerebral infarction without residual deficits; Z79.02 Long term (current) use of antithrombotics/antiplatelets
CPT/HCPCS: 36415; 71010; 80053; 80061; 82550; 82553; 82962; 83880; 84443; 84484; 85007; 85025; 85610; 85730; 86140; 87081; 93005; 93306; 94640; 94664; J1815; J7620